=== PATIENT | female | born 1975 | race Hispanic/Latino ===

== ENCOUNTER 2018-07-11 20:04 | Observation (INO) | payer OTHER ==
[2018-07-11 20:43] LABS: #Basophils 0.1 thou/uL (0.0-0.2); #Eosinphils 0.3 thou/uL (0.0-0.7); #Lymphocytes 4.1 thou/uL (1.20-3.40); #Monocytes 0.8 thou/uL (0.11-0.59); #Neutrophils 6.7 thou/uL (1.40-6.50); %Basophils 0.6 % (0.0-1.0); %Eosinophils 2.3 % (0.0-10.0); %Lymphocytes 33.9 % (21.0-51.0); %Neutrophils 56.2 % (42.0-75.0); Hemoglobin 12.5 g/dL (12.0-16.0); Mean Corpuscular HGB CONC 33.1 g/dL (32.0-36.0); Mean Corpuscular Hemoglobin 30.1 pg (27.0-31.0); Mean Corpuscular Volume 90.9 fL (78.0-98.0); Mean Platelet Volume 8.7 fL (7.4-10.4); Platelet Count 316 thou/uL (130-400); RBC Distribution Width 14.3 % (11.5-14.5); Red Blood Cell (RBC) Count 4.15 mill/uL (4.20-5.40); White Blood Cell (WBC) Count 11.9 thou/uL (4.8-10.8)
[2018-07-11 21:04] LABS: ALT (SGPT) 8 U/L (8-55); AST (SGOT) 20 U/L (5-34); Albumin 3.8 g/dL (3.5-5.0); Alkaline Phosphatase 87 U/L (40-150); Anion Gap 14 mmol/L (10-20); BUN (Urea Nitrogen) 15 mg/dL (7.0-18.7); Bilirubin, Total 0.2 mg/dL (0.2-1.2); Calc. Creatinine Clearance 0 mL/min (70-130); Calcium 9.7 mg/dL (7.8-10.44); Carbon Dioxide 27 mmol/L (22-29); Chloride 100 mmol/L (98-107); Estimated GFR-MDRD Greater than 90; Globulin 3.8 g/dL (2.4-3.5); Glucose 115 mg/dL (70-105); Potassium 4.2 mmol/L (3.5-5.1); Protein, Total 7.6 g/dL (6.0-8.3); Sodium 137 mmol/L (136-145)
--- NOTE | 2018-07-11 21:24 | RAD ---
PORTABLE CHEST: 07/11/18 HISTORY: COPD and cough. This film is very suboptimal which appears largely to be related to body habitus. The heart size with in normal limits. Increased density over the right lung is probably on the basis of overlying soft ti ssue. Repeat PA chest film would be recommended for assessment. IMPRESSION: Suboptimal film. Increased density over the right lung is probably on the basis of overlying soft tis malu but a PA chest film would be helpful in better assessment. POS: [facility]
--- NOTE | 2018-07-11 21:53 | ULT ---
BILATERAL LOWER EXTREMITY VENOUS DUPLEX EXAM: 07/11/18 HISTORY: Bilateral lower extremity pain. The exam is technically difficult due to body habitus. Real time color doppler evaluation of the right and left lower extremities were performed including e valuation of the common femoral, superficial and profunda femoral, saphenous, popliteal, and posterio r tibial veins. There are patent deep venous systems bilaterally with normal compressibility and augmentation. IMPRESSION: No evidence of DVT of either lower extremity. POS: [facility]
--- NOTE | 2018-07-11 22:24 | RAD ---
CHEST TWO VIEWS: 07/11/18 COMPARISON: 04/11/14 study. HISTORY: Cough. Heart size is within normal limits. Lungs are clear of any infiltrative process. No significant bony findings. IMPRESSION: No active intrathoracic disease. POS: [facility]
[2018-07-11] MEDS ORDERED: hydrALAZINE 20 MG/ML VIAL ONE (22:41)
[2018-07-11] MEDS ORDERED: HYDROcodone/Acetaminophen 10/325 mg Tablet ONE (22:45)
[2018-07-11 23:34] LABS: Actual Bicarbonate (HCO3a) 25.6 mEq/L (22-28); Analyzer IN Cardio ER; Base Excess (BEa) 0.8 mEq/L (-2.0 to +3.0); CO2 Tension 41.4 mmHg (35.0-45.0); Calcium, Ionized 1.17 mmol/L (1.12-1.30); Carboxyhemoglobin (COHb) 0.1 gm% (0.0-3.0); Hemoglobin (Hb) 12.3 g/dL (12.0-16.0); O2 Tension (PaO2) 75.9 mmHg (80.0-100.0); Potassium - ABG Lab 3.84 mmol/L (3.70-5.30); pH, Arterial 7.41 (7.35-7.45)
[2018-07-12 01:29] LABS: Bilirubin Negative (Negative); Blood, Urine Negative (Negative); Clarity TURBID (Clear); Glucose, Urine (Dipstick) Negative (Negative); Leukocyte Moderate (Negative); Nitrite Negative (Negative); Protein, Urine (Dipstick) Trace mg/dL (Neg-Trace); Specific Gravity, Urine 1.027 (1.002-1.036); Urobilinogen 0.2 mg/dL (0.2-1.0)
[2018-07-12 01:31] LABS: Bacteria/HPF Rare-Few HPF (None Seen)
[2018-07-12 01:35] LABS: Hyaline Casts/LPF >50 HYALINE CAST LPF (0-3 Hyaline); Pathc Cast-AUWi Flag 27.91 (0-2.49)
[2018-07-12 02:07] LABS: Crystals/HPF 2+ STARCH HPF (Negative)
[2018-07-12 05:26] VITALS: BMI 76.3
[2018-07-12] MEDS ORDERED: Ondansetron PF 4 MG/2 ML Vial IVP PRN (05:47)
[2018-07-12] MEDS ORDERED: Ondansetron ODT 4 MG TAB SL PRN (05:47)
[2018-07-12] MEDS ORDERED: HYDROcodone/Acetaminophen 5/325 mg Tablet PO PRN ×2 (05:47)
[2018-07-12] MEDS ORDERED: Acetaminophen 325 MG TAB PO PRN (06:17)
[2018-07-12] MEDS ORDERED: cloNIDine 0.1 MG TAB PO PRN (06:20)
[2018-07-12] MEDS ORDERED: Lorazepam 1 MG TAB PO PRN (06:20)
[2018-07-12] MEDS ORDERED: RIZATRIPTAN BENZOATE 5 MG PO PRN (06:20)
[2018-07-12] MEDS ORDERED: PROVENTIL INHALER 6.7 G (200 INHALATIONS) INH PRN (06:20)
[2018-07-12] MEDS ORDERED: Rizatriptan Benzoate 10 MG MLT TAB PO PRN (06:34)
[2018-07-12] MEDS ORDERED: cefTRIAXone\\ROCEPHIN 1 GM in Sodium Chloride 0.9% 100 ML IVPB SCH (07:00)
[2018-07-12] MEDS: HYDROcodone/Acetaminophen 10/325 mg Tablet PO PRN ×4 (07:23→21:47)
--- NOTE | 2018-07-12 07:37 | HP ---
PRIMARY CARE DOCTOR: Dr. Bruce Armstrong CODE STATUS: Full code. TIME OF EVALUATION: 5:30 a.m. CHIEF COMPLAINT: Shortness of breath and tachycardia. HISTORY OF PRESENT ILLNESS: This is a 42 years old female patient, who is morbidly obese, also has a history of OA, RA, SLE, COPD, asthma. The patient came to the hospital having cough for a week, now associated with tachycardia with greenish sputum and shortness of breath that is worse with exertion and also when she falls asleep in the flat position. She also reported associated fever of 101.4 with chills. She reported she has finished [facility] as outpatient. Symptoms are moderate. REVIEW OF SYSTEMS: CONSTITUTIONAL: The patient has fever, chills, generalized weakness. RESPIRATORY: Cough, sputum production that is green, shortness of breath. CARDIOVASCULAR: No chest pain or palpitations. GASTROINTESTINAL: No nausea, no vomiting, diarrhea, or abdominal pain. GRADUATE FELLOW: No dizziness, headache, or feeling lightheaded. GENITOURINARY: No burning on urination. EXTREMITIES: Bilateral leg swelling. All other systems were reviewed and negative except for the findings mentioned above. PAST MEDICAL HISTORY: Positive for hypertension, fibromyalgia, lupus, migraines , chronic back pain, rheumatoid arthritis, asthma, pneumonia, and pleurisy. PAST SURGICAL HISTORY: The patient had right knee replacement, bilateral carpal tunnel surgery, sinus surgery x3, left knee replacement. PSYCHIATRIC HISTORY: Anxiety. SOCIAL HISTORY: The patient denies alcohol, drugs, or smoking history. Lives at home. FAMILY HISTORY: Reviewed and noncontributory for current presentation. ALLERGIES: TO MONTELUKAST, SINGULAIR, TRAMADOL. REPORTED MEDICATIONS: 1. Fluoxetine. 2. Lyrica. 3. Nexium. 4. Banner. 5. Potassium chloride. 6. Lorazepam. 7. Dilacor XR. 8. Savella. 9. Methimazole. 10. Aspirin. 11. Meloxicam. 12. Furosemide. 13. Losartan. 14. Clonidine. PHYSICAL EXAMINATION: VITAL SIGNS: On presentation, blood pressure 182/133 with heart rate 111, respiratory rate was 19, temperature 98.7. Pain was 7/10. Oxygen saturation was 98% on room air. GENERAL APPEARANCE: The patient is alert and oriented. HEENT: Eyes, normal conjunctiva. Moist oral mucosa. Anicteric. No JVD. RESPIRATORY: Bilateral air entry. No rales. No wheezes. Symmetric expansion. CARDIOVASCULAR: The patient is tachycardic. Regular rhythm. No murmurs. No gallop. Bilateral leg edema. ABDOMEN: The patient is morbidly obese. Normal bowel sounds. MUSCULOSKELETAL: Baseline range of motion and strength. No tenderness. SKIN: Warm, intact. No pallor. No rash. No redness. Peripheral pulses are present. Capillary refill seems to be intact. NEURO: No evidence of any focal weakness. Baseline speech. Cranial nerves seems to be intact. PSYCH: The patient is in good mood. No anxiety. Optimal judgment. DIAGNOSTIC STUDIES: EKG was reviewed, sinus tachycardia at the rate of 113, NE 150, QRS 84, QT corrected 477. Chest x-ray, suboptimal film, increased density over the right lung is probably on the basis of overlying soft tissue, but PA chest film will be helpful for better assessment. Venogram; no evidence of DVT of either lower extremity. Chest x-ray; no evidence of any cardiothoracic disease. LABORATORY DATA: White count 11.9, hemoglobin 12.5, platelet count 360. D-dimer 0.43. Blood gas was done; pH 7.41, pCO2 of 41, pO2 of 75.9. Chemistry; sodium 137, potassium 4.2, chloride 100, carbon dioxide 27, anion gap 14, BUN 15, creatinine 0.67, GFR is greater than 90, glucose 115, lactic acid 1.7, calcium 9.7, total bilirubin 0.2, AST 20, ALT 8, alkaline phosphatase 87. Troponin I was negative. Beta natriuretic peptide was 74.7. Urine was done, and the patient has a white count greater than 50, too numerous too count. ASSESSMENT AND PLAN: The patient was placed in the hospital with following medical problems: 1. Sepsis. The patient has fever, tachycardia, source is urinary tract infection , also possible acute bronchitis. We will place the patient on antibiotics. Final cultures. Adjust treatment as per sensitivity. 2. Hyperthyroidism. The patient will be placed on home medications. We will check TSH. 3. Morbid obesity. The patient is advised to lose weight. 4. Uncontrolled hypertension. The patient presented with hypertensive urgency with blood pressure of 182/133, has been treated in ER. Blood pressure has improved. 5. Reportedly history of rheumatoid arthritis and systemic lupus erythematosus. We will reconcile home medications. We will adjust treatment as needed. 6. Possible acute bronchitis. The patient has some fever and some cough with greenish sputum production. The patient will be placed on antibiotics with some nebs. Questionable history of chronic obstructive pulmonary disease. 7. Deep venous thrombosis prophylaxis. Job ID: [id number] MTDD
[2018-07-12] MEDS ORDERED: Loratadine 10 MG TAB PO PRN (07:54)
[2018-07-12] MEDS ORDERED: Artificial Tears 18 DROP/0.9 ML EA EYE PRN (07:54)
[2018-07-12] MEDS ORDERED: Diabetic Tussin 200 MG/10 ML UDCUP PO PRN (07:54)
[2018-07-12] MEDS ORDERED: hydrALAZINE 20 MG/ML VIAL SLOW IVP PRN (07:54)
[2018-07-12] MEDS ORDERED: Loperamide HCl 2 MG CAP PO PRN (07:54)
[2018-07-12] MEDS ORDERED: Cepastat Lozenges 1 LOZ PO PRN (07:54)
[2018-07-12] MEDS ORDERED: Senokot S 8.6-50 MG TAB PO PRN (07:54)
[2018-07-12] MEDS ORDERED: Sodium Chloride 0.65% Nasal 44 ML BOT EA NARE PRN (07:54)
[2018-07-12] MEDS ORDERED: Eucerin (Mineral Oil/Petrolatum,White) 30 gm Jar TOP PRN (07:54)
[2018-07-12] MEDS ORDERED: Bisacodyl 10 MG SUPP PR PRN (07:54)
[2018-07-12] MEDS ORDERED: Non-Formulary Item 1 EACH (Esomeprazole Magnesium [Nexium] 40 MG) PO SCH (08:00)
[2018-07-12] MEDS: Meloxicam 15 MG TAB PO SCH (08:57)
[2018-07-12] MEDS: Enoxaparin Sodium 40 MG/0.4 ML SYRINGE SC SCH (08:57)
[2018-07-12] MEDS: Potassium Chloride 10 MEQ TAB PO SCH ×2 (08:58→21:47)
[2018-07-12] MEDS: Losartan 25 MG TAB PO SCH (08:58)
[2018-07-12] MEDS: FLUoxetine HCl 20 MG CAP PO SCH ×2 (08:58→21:46)
[2018-07-12] MEDS: Aspirin 81 mg Enteric Coated Tablet PO SCH (08:58)
[2018-07-12] MEDS: guaiFENesin ER 600 MG TAB PO SCH ×2 (08:59→21:46)
[2018-07-12] MEDS: Furosemide 20 MG TAB PO SCH (08:59)
[2018-07-12] MEDS: Pregabalin 75 MG CAP PO SCH ×3 (08:59→21:45)
[2018-07-12] MEDS ORDERED: Non-Formulary Item 1 EACH (Pregabalin [Lyrica] 150 MG) PO SCH (09:00)
[2018-07-12] MEDS: cloNIDine 0.1 MG TAB PO SCH ×4 (09:00→21:44)
[2018-07-12] MEDS ORDERED: Non-Formulary Item 1 EACH (Losartan Potassium [Losartan Potassium] 100 MG) PO SCH (09:00)
[2018-07-12] MEDS ORDERED: MILNACIPRAN HCL 150 MG PO SCH ×2 (09:00)
[2018-07-12] MEDS ORDERED: Non-Formulary Item 1 EACH (Potassium Chloride [Potassium Chloride] 10 MEQ) PO SCH (09:00)
[2018-07-12] MEDS ORDERED: DILTIAZEM HCL 180 MG PO SCH (09:00)
[2018-07-12] MEDS: Methimazole 5 MG TAB PO SCH ×3 (09:59→21:47)
--- NOTE | 2018-07-12 11:31 | PDOC.PN ---
- Subjective Encounter Start Date: 07/12/18 Encounter Start Time: 07:30 -: old records requested/rev pt has cough, no fever, has dyspnea Patient seen and examined. No overnight events - Objective Resuscitation Status - Order Detail: 07/12/18 06:17 Resuscitation Status Routine Resuscitation Status: FULL: Full Resuscitation MAR Reviewed: Yes Vital Signs & Weight: Vital Signs (12 hours) Temp Pulse Resp BP Pulse Ox 07/12/18 08:14 97.8 F 103 H 20 155/74 H 93 L 07/12/18 05:20 98.3 F 111 H 20 176/115 H 94 L Weight Weight 431 lb I&O: 07/11/18 07/12/18 07/13/18 06:59 06:59 06:59 Intake Total 100 Balance 100 Result Diagrams: 07/11/18 20:33 07/11/18 20:33 Additional Labs: Accuchecks 07/12/18 07/12/18 10:46 05:45 POC Glucose 110 119 H Radiology Reviewed by me: Yes (chest xray reviwed) EKG Reviewed by me: Yes (nsr) Phys Exam - Physical Examination Constitutional: NAD HEENT: PERRLA, moist MMs, sclera anicteric Neck: no JVD, supple short neck Respiratory: no wheezing, no rales, no rhonchi limited exam due to obesity Cardiovascular: RRR, no significant murmur, no rub limited exam, distant sound Gastrointestinal: soft, non-tender, no distention, positive bowel sounds morbid obesity+ Musculoskeletal: no edema, pulses present Neurological: non-focal, normal sensation Lymphatic: no nodes Psychiatric: normal affect, A&O x 3 Skin: no rash, normal turgor Dx/Plan (1) Acute bronchitis Code(s): J20.9 - ACUTE BRONCHITIS, UNSPECIFIED Status: Acute (2) UTI (urinary tract infection) Status: Acute (3) Anxiety and depression Code(s): F41.9 - ANXIETY DISORDER, UNSPECIFIED; F32.9 - MAJOR DEPRESSIVE DISORDER, SINGLE EPISODE, UNSPECIFIED Status: Chronic (4) Asthma with COPD Code(s): J44.9 - CHRONIC OBSTRUCTIVE PULMONARY DISEASE, UNSPECIFIED Status: Chronic (5) Chronic pain syndrome Code(s): G89.4 - CHRONIC PAIN SYNDROME Status: Chronic (6) GERD (gastroesophageal reflux disease) Code(s): K21.9 - GASTRO-ESOPHAGEAL REFLUX DISEASE WITHOUT ESOPHAGITIS Status: Chronic (7) Hypertension Code(s): I10 - ESSENTIAL (PRIMARY) HYPERTENSION Status: Chronic (8) Hyperthyroidism Code(s): E05.90 - THYROTOXICOSIS, UNSP WITHOUT THYROTOXIC CRISIS OR STORM Status: Chronic (9) Migraine Code(s): G43.909 - MIGRAINE, UNSP, NOT INTRACTABLE, WITHOUT STATUS MIGRAINOSUS Status: Chronic (10) Morbid obesity with BMI of 70 and over, adult Code(s): E66.01 - MORBID (SEVERE) OBESITY DUE TO EXCESS CALORIES; Z68.45 - BODY MASS INDEX (BMI) 70 OR GREATER, ADULT Status: Chronic (11) Obstructive sleep apnea Code(s): G47.33 - OBSTRUCTIVE SLEEP APNEA (ADULT) (PEDIATRIC) Status: Chronic (12) Osteoarthritis Code(s): M19.90 - UNSPECIFIED OSTEOARTHRITIS, UNSPECIFIED SITE Status: Chronic - Plan cont current plan of care, plan discussed w/ family, continue antibiotics, respiratory therapy * continue rocephin * continue respiratory therapy * add mucinex * follow on urine culture result * expecting discharge tomorrow * medication reviewed as below * symptomatic treatment. Review of Systems - Review of Systems Constitutional: negative: fever, chills, sweats, weakness, malaise, other Eyes: negative: Pain, Vision Change, Conjunctivae Inflammation, Eyelid Inflammation, Redness, Other ENT: negative: Ear Pain, Ear Discharge, Nose Pain, Nose Discharge, Nose Congestion, Mouth Pain, Mouth Swelling, Throat Pain, Throat Swelling, Other Respiratory: Cough. negative: Dry, Shortness of Breath, Hemoptysis, SOB with Excertion, Pleuritic Pain, Sputum, Wheezing Cardiovascular: negative: chest pain, palpitations, orthopnea, paroxysmal nocturnal dyspnea, edema, light headedness, other Gastrointestinal: negative: Nausea, Vomiting, Abdominal Pain, Diarrhea, Constipation, Melena, Hematochezia, Other Genitourinary: negative: Dysuria, Frequency, Incontinence, Hematuria, Retention , Other Musculoskeletal: negative: Neck Pain, Shoulder Pain, Arm Pain, Back Pain, Hand Pain, Leg Pain, Foot Pain, Other Skin: negative: Rash, Lesions, Sandeep, Bruising, Other - Medications/Allergies Allergies/Adverse Reactions: Allergies Allergy/AdvReac Type Severity Reaction Status Date / Time montelukast sodium Allergy Verified 11/30/13 01:41 [From [facility]] tramadol Allergy Verified 01/09/15 02:17 Medications: Current Medications Acetaminophen (Tylenol) 650 mg PO Q4H PRN PRN Reason: Headache/Fever/Mild Pain (1-3) Hydrocodone Bitart/Acetaminophen ([place] 10/325) 2 tab PO Q4H PRN PRN Reason: Pain Last Admin: 07/12/18 07:23 Dose: 2 tab Albuterol Sulfate (Proventil Hfa) 2 puff INH Q4H PRN PRN Reason: Dyspnea/Wheezing/SOB Albuterol/Ipratropium (Duoneb) 3 ml NEB Q6H PRN PRN Reason: .SOB Stop: 07/15/18 11:20 Artificial Tears (Tears Naturale) 2 drop EA EYE PRN PRN PRN Reason: Dry Eyes Aspirin (Ecotrin) 81 mg PO DAILY [facility] Last Admin: 07/12/18 08:58 Dose: 81 mg Bisacodyl (Dulcolax) 10 mg AR DAILYPRN PRN PRN Reason: Constipation Clonidine (Catapres) 0.1 mg PO Q4HR [facility] Stop: 07/16/18 11:20 Last Admin: 07/12/18 09:00 Dose: 0.1 mg Clonidine (Catapres) 0.1 mg PO BID PRN PRN Reason: Hypertension Diltiazem HCl (Cardizem Cd) 180 mg PO DAILY [facility] Last Admin: 07/12/18 08:59 Dose: 180 mg Enoxaparin Sodium (Lovenox) 40 mg SC 0900 [facility] Last Admin: 07/12/18 08:57 Dose: 40 mg Fluoxetine HCl (Prozac) 20 mg PO BID [facility] Last Admin: 07/12/18 08:58 Dose: 20 mg Furosemide (Lasix) 20 mg PO DAILY [facility] Last Admin: 07/12/18 08:59 Dose: 20 mg Guaifenesin (Robitussin Sf) 200 mg PO Q4H PRN PRN Reason: Cough Guaifenesin (Mucinex) 1,200 mg PO Q12HR [facility] Last Admin: 07/12/18 08:59 Dose: 1,200 mg Hydralazine HCl (Apresoline) 10 mg SLOW IVP Q4H PRN PRN Reason: SBP > 180 and HR < 70 Ceftriaxone Sodium 1 gm/ (Sodium Chloride) 100 mls @ 200 mls/hr IVPB Q24HR [facility] Last Admin: 07/12/18 07:23 Dose: 100 mls Loperamide HCl (Imodium) 2 mg PO PRN PRN PRN Reason: Diarrhea/Loose Stools Loratadine (Claritin) 10 mg PO DAILYPRN PRN PRN Reason: Sinus Symptoms Lorazepam (Ativan) 1 mg PO Q6H PRN PRN Reason: Anxiety Losartan Potassium (Cozaar) 100 mg PO DAILY [facility] Last Admin: 07/12/18 08:58 Dose: 100 mg Meloxicam (Mobic) 15 mg PO DAILY [facility] Last Admin: 07/12/18 08:57 Dose: 15 mg Methimazole () 5 mg PO TID [facility] Last Admin: 07/12/18 09:59 Dose: 5 mg Mineral Oil/White Petrolatum (Eucerin Cream) 0 gm TOP BIDPRN PRN PRN Reason: Dry Skin Ondansetron HCl (Zofran) 4 mg IVP Q6H PRN PRN Reason: Nausea/Vomiting Stop: 07/16/18 11:20 Pantoprazole Sodium (Protonix) 40 mg PO QAM-WM [facility] Last Admin: 07/12/18 07:24 Dose: 40 mg (Milnacipran Hcl [ (Savella] 150 Mg) 0 each PO BID [facility] Potassium Chloride (Klor-Con 10) 10 meq PO BID [facility] Last Admin: 07/12/18 08:58 Dose: 10 meq Pregabalin (Lyrica) 150 mg PO TID [facility] Last Admin: 07/12/18 08:59 Dose: 150 mg Rizatriptan Benzoate (Maxalt-Leather Belt Loop Cutter) 5 mg PO Q2H PRN PRN Reason: Headache Senna/Docusate Sodium (Senokot S) 2 tab PO BID PRN PRN Reason: Constipation Sodium Chloride (Flush - Normal Saline) 10 ml IVF Q12HR [facility] Last Admin: 07/12/18 09:04 Dose: 10 ml Sodium Chloride (Flush - Normal Saline) 10 ml IVF PRN PRN PRN Reason: Saline Flush Sodium Chloride ([place] Nasal [place] 0.65%) 0 ml EA NARE QIDPRN PRN PRN Reason: Nasal Congestion Throat Lozenges (Cepastat Lozenges) 1 marquis PO Q2H PRN PRN Reason: Sore Throat
[2018-07-13] MEDS: cloNIDine 0.1 MG TAB PO SCH (01:15)
[2018-07-13] MEDS ORDERED: Lorazepam 2 MG/ML VIAL SLOW IVP SCH (02:45)
[2018-07-13] MEDS: HYDROcodone/Acetaminophen 10/325 mg Tablet PO PRN ×2 (04:10→09:26)
[2018-07-13 06:11] LABS: #Eosinphils 0.3 thou/uL (0.0-0.7); #Lymphocytes 3.7 thou/uL (1.20-3.40); #Monocytes 0.7 thou/uL (0.11-0.59); #Neutrophils 6.5 thou/uL (1.40-6.50); %Basophils 0.4 % (0.0-1.0); %Eosinophils 2.5 % (0.0-10.0); %Lymphocytes 32.7 % (21.0-51.0); %Monocytes 6.2 % (0.0-10.0); %Neutrophils 58.2 % (42.0-75.0); Hemoglobin 11.8 g/dL (12.0-16.0); Mean Corpuscular HGB CONC 33.7 g/dL (32.0-36.0); Mean Corpuscular Hemoglobin 30.3 pg (27.0-31.0); Mean Corpuscular Volume 89.9 fL (78.0-98.0); Platelet Count 289 thou/uL (130-400); RBC Distribution Width 14.2 % (11.5-14.5); White Blood Cell (WBC) Count 11.2 thou/uL (4.8-10.8)
[2018-07-13 06:32] LABS: Anion Gap 14 mmol/L (10-20); BUN (Urea Nitrogen) 13 mg/dL (7.0-18.7); Calc. Creatinine Clearance 360 mL/min (70-130); Calcium 9.3 mg/dL (7.8-10.44); Carbon Dioxide 24 mmol/L (22-29); Chloride 101 mmol/L (98-107); Estimated GFR-MDRD Greater than 90; Glucose 123 mg/dL (70-105); Potassium 4.2 mmol/L (3.5-5.1); Sodium 135 mmol/L (136-145)
[2018-07-13] MEDS ORDERED: cefTRIAXone\\ROCEPHIN 1 GM in Sodium Chloride 0.9% 100 ML IVPB SCH (08:00)
[2018-07-13 08:40] VITALS: TEMP 98.1
[2018-07-13] MEDS: Pregabalin 75 MG CAP PO SCH (08:41)
[2018-07-13] MEDS: Potassium Chloride 10 MEQ TAB PO SCH (08:42)
[2018-07-13] MEDS: Enoxaparin Sodium 40 MG/0.4 ML SYRINGE SC SCH (08:43)
[2018-07-13] MEDS: FLUoxetine HCl 20 MG CAP PO SCH (08:43)
[2018-07-13] MEDS: Aspirin 81 mg Enteric Coated Tablet PO SCH (08:43)
[2018-07-13] MEDS: Furosemide 20 MG TAB PO SCH (08:43)
[2018-07-13] MEDS: Meloxicam 15 MG TAB PO SCH (08:44)
[2018-07-13] MEDS: Losartan 25 MG TAB PO SCH (08:44)
[2018-07-13] MEDS: guaiFENesin ER 600 MG TAB PO SCH (08:44)
[2018-07-13] MEDS: Methimazole 5 MG TAB PO SCH (08:44)
--- NOTE | 2018-07-13 09:29 | PDOC.PN ---
- Subjective Encounter Start Date: 07/13/18 Encounter Start Time: 07:20 Patient seen and examined. No new complaints. No overnight events - Objective Resuscitation Status - Order Detail: 07/12/18 06:17 Resuscitation Status Routine Resuscitation Status: FULL: Full Resuscitation MAR Reviewed: Yes Vital Signs & Weight: Vital Signs (12 hours) Temp Pulse Resp BP BP BP Pulse Ox 07/13/18 08:40 98.1 F 97 17 177/105 H 96 07/13/18 05:45 95 20 130/60 07/13/18 04:55 20 95 07/13/18 04:52 20 95 07/13/18 04:13 187/105 H 07/13/18 03:40 97.7 F 97 20 178/100 H 95 07/13/18 01:15 191/96 H 07/13/18 01:12 20 95 07/12/18 23:15 97.9 F 96 20 123/64 95 07/12/18 21:44 191/96 H 07/12/18 21:30 20 94 L Weight Weight 429 lb 14.4 oz I&O: 07/12/18 07/13/18 07/14/18 06:59 06:59 06:59 Intake Total 1660 Balance 1660 Result Diagrams: 07/13/18 05:40 07/13/18 05:40 Additional Labs: Accuchecks 07/13/18 07/12/18 07/12/18 05:19 17:15 10:46 POC Glucose 123 H 138 H 110 EKG Reviewed by me: Yes Phys Exam - Physical Examination Constitutional: NAD HEENT: PERRLA, moist MMs, sclera anicteric, TM's clear Neck: no JVD, supple Respiratory: no wheezing, no rales, no rhonchi Cardiovascular: RRR, no significant murmur, no rub Gastrointestinal: soft, non-tender, no distention, positive bowel sounds Musculoskeletal: no edema, pulses present Neurological: non-focal, normal sensation, moves all 4 limbs Lymphatic: no nodes Psychiatric: normal affect, A&O x 3 Skin: no rash, normal turgor Dx/Plan (1) Acute bronchitis Code(s): J20.9 - ACUTE BRONCHITIS, UNSPECIFIED Status: Acute (2) UTI (urinary tract infection) Status: Acute (3) Anxiety and depression Code(s): F41.9 - ANXIETY DISORDER, UNSPECIFIED; F32.9 - MAJOR DEPRESSIVE DISORDER, SINGLE EPISODE, UNSPECIFIED Status: Chronic (4) Asthma with COPD Code(s): J44.9 - CHRONIC OBSTRUCTIVE PULMONARY DISEASE, UNSPECIFIED Status: Chronic (5) Chronic pain syndrome Code(s): G89.4 - CHRONIC PAIN SYNDROME Status: Chronic (6) GERD (gastroesophageal reflux disease) Code(s): K21.9 - GASTRO-ESOPHAGEAL REFLUX DISEASE WITHOUT ESOPHAGITIS Status: Chronic (7) Hypertension Code(s): I10 - ESSENTIAL (PRIMARY) HYPERTENSION Status: Chronic (8) Hyperthyroidism Code(s): E05.90 - THYROTOXICOSIS, UNSP WITHOUT THYROTOXIC CRISIS OR STORM Status: Chronic (9) Migraine Code(s): G43.909 - MIGRAINE, UNSP, NOT INTRACTABLE, WITHOUT STATUS MIGRAINOSUS Status: Chronic (10) Morbid obesity with BMI of 70 and over, adult Code(s): E66.01 - MORBID (SEVERE) OBESITY DUE TO EXCESS CALORIES; Z68.45 - BODY MASS INDEX (BMI) 70 OR GREATER, ADULT Status: Chronic (11) Obstructive sleep apnea Code(s): G47.33 - OBSTRUCTIVE SLEEP APNEA (ADULT) (PEDIATRIC) Status: Chronic (12) Osteoarthritis Code(s): M19.90 - UNSPECIFIED OSTEOARTHRITIS, UNSPECIFIED SITE Status: Chronic - Plan cont current plan of care, plan discussed w/ family * medication reviewed as below * symptomatic treatment * see discharge taisha. Review of Systems - Review of Systems ENT: negative: Ear Pain, Ear Discharge, Nose Pain, Nose Discharge, Nose Congestion, Mouth Pain, Mouth Swelling, Throat Pain, Throat Swelling, Other Respiratory: negative: Cough, Dry, Shortness of Breath, Hemoptysis, SOB with Excertion, Pleuritic Pain, Sputum, Wheezing Cardiovascular: negative: chest pain, palpitations, orthopnea, paroxysmal nocturnal dyspnea, edema, light headedness, other Gastrointestinal: negative: Nausea, Vomiting, Abdominal Pain, Diarrhea, Constipation, Melena, Hematochezia, Other Genitourinary: negative: Dysuria, Frequency, Incontinence, Hematuria, Retention , Other Musculoskeletal: negative: Neck Pain, Shoulder Pain, Arm Pain, Back Pain, Hand Pain, Leg Pain, Foot Pain, Other - Medications/Allergies Allergies/Adverse Reactions: Allergies Allergy/AdvReac Type Severity Reaction Status Date / Time montelukast sodium Allergy Verified 04/28/13 01:41 [From [facility]] tramadol Allergy Verified 01/09/15 02:17 Medications: Current Medications Acetaminophen (Tylenol) 650 mg PO Q4H PRN PRN Reason: Headache/Fever/Mild Pain (1-3) Hydrocodone Bitart/Acetaminophen ([place] 10/325) 2 tab PO Q4H PRN PRN Reason: Pain Last Admin: 07/13/18 09:26 Dose: 2 tab Albuterol Sulfate (Proventil Hfa) 2 puff INH Q4H PRN PRN Reason: Dyspnea/Wheezing/SOB Last Admin: 07/13/18 04:55 Dose: 2 puff Artificial Tears (Tears Naturale) 2 drop EA EYE PRN PRN PRN Reason: Dry Eyes Aspirin (Ecotrin) 81 mg PO DAILY [facility] Last Admin: 07/13/18 08:43 Dose: 81 mg Bisacodyl (Dulcolax) 10 mg OR DAILYPRN PRN PRN Reason: Constipation Clonidine (Catapres) 0.1 mg PO BID PRN PRN Reason: Hypertension Last Admin: 07/13/18 04:13 Dose: 0.1 mg Diltiazem HCl (Cardizem Cd) 180 mg PO DAILY [facility] Last Admin: 07/13/18 08:43 Dose: 180 mg Enoxaparin Sodium (Lovenox) 40 mg SC 0900 [facility] Last Admin: 07/13/18 08:43 Dose: 40 mg Fluoxetine HCl (Prozac) 20 mg PO BID [facility] Last Admin: 07/13/18 08:43 Dose: 20 mg Furosemide (Lasix) 20 mg PO DAILY [facility] Last Admin: 07/13/18 08:43 Dose: 20 mg Guaifenesin (Robitussin Sf) 200 mg PO Q4H PRN PRN Reason: Cough Guaifenesin (Mucinex) 1,200 mg PO Q12HR [facility] Last Admin: 07/13/18 08:44 Dose: 1,200 mg Hydralazine HCl (Apresoline) 10 mg SLOW IVP Q4H PRN PRN Reason: SBP > 180 and HR < 70 Ceftriaxone Sodium 1 gm/ (Sodium Chloride) 100 mls @ 200 mls/hr IVPB 0800 [facility] Last Admin: 07/13/18 08:40 Dose: 100 mls Loperamide HCl (Imodium) 2 mg PO PRN PRN PRN Reason: Diarrhea/Loose Stools Loratadine (Claritin) 10 mg PO DAILYPRN PRN PRN Reason: Sinus Symptoms Lorazepam (Ativan) 1 mg PO Q6H PRN PRN Reason: Anxiety Losartan Potassium (Cozaar) 100 mg PO DAILY [facility] Last Admin: 07/13/18 08:44 Dose: 100 mg Meloxicam (Mobic) 15 mg PO DAILY [facility] Last Admin: 07/13/18 08:44 Dose: 15 mg Methimazole () 5 mg PO TID [facility] Last Admin: 07/13/18 08:44 Dose: 5 mg Mineral Oil/White Petrolatum (Eucerin Cream) 0 gm TOP BIDPRN PRN PRN Reason: Dry Skin Pantoprazole Sodium (Protonix) 40 mg PO QAM-WM [facility] Last Admin: 07/13/18 08:43 Dose: 40 mg (Milnacipran Hcl [ (Savella] 150 Mg) 0 each PO BID [facility] Potassium Chloride (Klor-Con 10) 10 meq PO BID [facility] Last Admin: 07/13/18 08:42 Dose: 10 meq Pregabalin (Lyrica) 150 mg PO TID [facility] Last Admin: 07/13/18 08:41 Dose: 150 mg Rizatriptan Benzoate (Maxalt-It Investment/Portfolio Manager) 5 mg PO Q2H PRN PRN Reason: Headache Senna/Docusate Sodium (Senokot S) 2 tab PO BID PRN PRN Reason: Constipation Sodium Chloride (Flush - Normal Saline) 10 ml IVF Q12HR [facility] Last Admin: 07/13/18 08:41 Dose: 10 ml Sodium Chloride (Flush - Normal Saline) 10 ml IVF PRN PRN PRN Reason: Saline Flush Sodium Chloride ([place] Nasal [place] 0.65%) 0 ml EA NARE QIDPRN PRN PRN Reason: Nasal Congestion Throat Lozenges (Cepastat Lozenges) 1 marquis PO Q2H PRN PRN Reason: Sore Throat
--- NOTE | 2018-07-13 09:48 | DIS ---
DATE OF ADMISSION: 07/11/2018 DATE OF DISCHARGE: 07/13/2018 PRIMARY CARE PHYSICIAN: Dr. Bruce Armstrong. DISCHARGE DISPOSITION: Home. PRIMARY DISCHARGE DIAGNOSES: Acute bronchitis, urinary tract infection. SECONDARY DISCHARGE DIAGNOSES: Morbid obesity with BMI 76, obstructive sleep apnea, osteoarthritis, migraine headaches, hyperthyroidism, hypertension, gastroesophageal reflux disease, chronic pain disorder, asthma with chronic obstructive pulmonary disease, anxiety and depression. PRIMARY PROCEDURES/OPERATION: None. RADIOLOGICAL INVESTIGATION: Chest x-ray normal. Ultrasound, lower extremity, negative for DVT. SIGNIFICANT LABORATORY DATA: WBC 11.2, hemoglobin 11.8, platelets 289. D-dimer 0.43. Sodium 135, potassium 4.2, BUN 13, creatinine 0.62, calcium 9.3. TSH 1.45. LFT normal. Cardiac enzyme negative. BNP 24.7. Lactic acid 1.7. Urinalysis suggestive of UTI. Urine culture negative. Blood culture negative. Influenza screen negative. DISCHARGE MEDICATIONS: 1. Rizatriptan 5 mg p.o. q.2 hourly p.r.n. as directed. 2. Isle 10 two tablets q.4 hourly p.r.n. 3. Ventolin inhaler two puffs q.4 hourly p.r.n. 4. Aspirin 81 mg daily. 5. Clonidine 0.1 mg p.o. b.i.d. p.r.n. 6. Cardizem CD 180 mg daily. 7. Nexium 40 mg daily. 8. Prozac 20 mg p.o. b.i.d. 9. Lasix 20 mg daily. 10. Lorazepam 1 mg p.o. q.6 hourly p.r.n. 11. Losartan 100 mg p.o. daily. 12. Mobic 15 mg p.o. daily p.r.n. 13. Methimazole 5 mg p.o. t.i.d. 14. Savella 150 mg p.o. b.i.d. 15. Potassium chloride 10 mEq p.o. b.i.d. 16. Lyrica 150 mg p.o. t.i.d. 17. Mucinex 600 mg p.o. q.i.d. 18. DuoNeb q.6 hourly. 19. Levaquin 750 mg p.o. daily for 7 days. 20. Dulera two puffs inhalation b.i.d. 21. Prednisone 20 mg p.o. b.i.d. for 7 days. CONTRAINDICATION: None. CODE STATUS: Full code. INPATIENT CONSULT: None. ALLERGIES: SINGULAIR, TRAMADOL. DISCHARGE PLAN: Posthospital, the patient will follow up with primary care physician in one week. HOSPITAL COURSE: A 42-year-old female who was admitted by Dr. Herrera. Please see his H and P for further details. The patient was admitted for cough and shortness of breath. She was initially tachycardic and tachypneic. Her D-dimer was negative. Her chest x-ray was unremarkable. Ultrasound of lower extremity was negative for DVT. Her BNP was normal and cardiac enzyme is negative. The patient was diagnosed with acute bronchitis. She was treated with respiratory therapy, empiric antibiotic therapy. Her urinalysis was also consistent with UTI. Her influenza screen, blood culture, and urine culture negative by the time of discharge. Next day, the patient was on room air. She did not have any wheezing. She was feeling much better. On discharge, we prescribed seven days of prednisone as well as seven days' worth antibiotic therapy. DuoNeb, she ran out, which was also prescribed. Rest of medication will be continued as per previous. The patient will follow up with primary care physician. The patient is seen and examined at bedside today. REVIEW OF SYSTEMS: Reviewed with her and negative. PHYSICAL EXAMINATION: VITAL SIGNS: Currently, temperature 98.1, pulse 95, respiratory rate 20, blood pressure 130/60, saturation 95% on room air. Weight 429 pounds. GENERAL: The patient is currently alert and awake. No obvious acute distress. HEENT: Head; normocephalic and atraumatic. LUNGS: Clear to auscultation without any rhonchi or rales. CARDIAC: S1 and S2 regular. Distant heart sound. No murmur. ABDOMEN: Morbid obesity. Limiting examination. EXTREMITIES: No edema. NEUROLOGIC: Nonfocal examination. All prescription sent to her pharmacy. The patient is medically stable for discharge today. Job ID: [id number]
[2018-07-13 10:47] VITALS: BP 148/84
== END 2018-07-13 11:09 | disposition home or self-care (01) ==
LOC: ERS 20:04 → ERHOLD 23:37 → 2NO 07-12 05:26
PROVIDERS: ADMIT Hospitalist; ATTEND Hospitalist
DX: J20.9 Acute bronchitis, unspecified (principal); N39.0 Urinary tract infection, site not specified; E66.01 Morbid (severe) obesity due to excess calories; Z68.45 Body mass index [BMI] 70 or greater, adult; I10 Essential (primary) hypertension; K21.9 Gastro-esophageal reflux disease without esophagitis; G89.4 Chronic pain syndrome; J44.9 Chronic obstructive pulmonary disease, unspecified; F32.9 Major depressive disorder, single episode, unspecified; F41.9 Anxiety disorder, unspecified; M19.90 Unspecified osteoarthritis, unspecified site; M06.9 Rheumatoid arthritis, unspecified; M32.9 Systemic lupus erythematosus, unspecified; M79.7 Fibromyalgia; G43.909 Migraine, unspecified, not intractable, without status migrainosus; E05.90 Thyrotoxicosis, unspecified without thyrotoxic crisis or storm; G47.33 Obstructive sleep apnea (adult) (pediatric); Z87.01 Personal history of pneumonia (recurrent); Z96.653 Presence of artificial knee joint, bilateral; Z88.8 Allergy status to other drugs, medicaments and biological substances; Z88.5 Allergy status to narcotic agent; Z79.82 Long term (current) use of aspirin; Z79.2 Long term (current) use of antibiotics; Z79.52 Long term (current) use of systemic steroids; Z79.1 Long term (current) use of non-steroidal anti-inflammatories (NSAID); Z79.899 Other long term (current) drug therapy; Z98.890 Other specified postprocedural states
CPT/HCPCS: 36415; 36416; 71045; 71046; 80048; 80053; 81003; 81015; 82805; 83605; 83880; 84443; 84484; 85025; 85379; 87040; 87086; 87804; 90471; 90686; 93005; 93970; 94640; 94660; 94664; 96365; 96366; 96372; 96374; 96375; G0008; G0378; J0360; J0696; J1650; J7050; J7620

== ENCOUNTER 2020-05-21 20:21 | Emergency (ER) | payer OTHER ==
--- NOTE | 2020-05-21 22:00 | RAD ---
EXAM: Single view of the chest HISTORY: Coughing up blood COMPARISON: 07/11/2018 FINDINGS: This exam is limited secondary to patient's large body habitus. Single view of the chest sh ows an enlarged cardiomediastinal silhouette. This may be accentuated by low lung volumes. Bilateral pulmonary vascular prominence is seen. There may be subtle airspace opacities in both lower lobes. No acute osseous abnormality. IMPRESSION: Possible bilateral lower lobe infiltrates. Evaluation is limited as above.
[2020-05-21 22:08] LABS: Hemoglobin 12.7 g/dL (12.0-16.0); Mean Corpuscular Hemoglobin 31.5 pg (27.0-31.0); Mean Corpuscular Volume 92.6 fL (78.0-98.0); Mean Platelet Volume 8.8 fL (7.4-10.4); Platelet Count 329 thou/uL (130-400); RBC Distribution Width 13.9 % (11.5-14.5); Red Blood Cell (RBC) Count 4.03 mill/uL (4.20-5.40); White Blood Cell (WBC) Count 17.5 thou/uL (4.8-10.8)
[2020-05-21] MEDS ORDERED: methylPREDNISolone Sod Succ/PF 125 MG/2 ML VIAL ONE (22:19)
[2020-05-21 22:24] LABS: ALT (SGPT) 12 U/L (8-55); AST (SGOT) 26 U/L (5-34); Alkaline Phosphatase 97 U/L (40-110); Anion Gap 18 mmol/L (10-20); BUN (Urea Nitrogen) 14 mg/dL (7.0-18.7); Bilirubin, Total 0.3 mg/dL (0.2-1.2); Calc. Creatinine Clearance 0 mL/min (70-130); Calcium 9.5 mg/dL (7.8-10.44); Carbon Dioxide 27 mmol/L (22-29); Chloride 98 mmol/L (98-107); Globulin 4.3 g/dL (2.4-3.5); Glucose 117 mg/dL (70-105); Potassium 4.2 mmol/L (3.5-5.1); Protein, Total 8.3 g/dL (6.0-8.3); Sodium 139 mmol/L (136-145)
[2020-05-21] MEDS ORDERED: Ketorolac Tromethamine 30 MG/ML VIAL ONE (22:25)
[2020-05-21] MEDS ORDERED: Dexamethasone 4 mg/ml Vial ONE (22:27)
[2020-05-21 22:40] LABS: Band 10 % (5-11); Eosinophils 1 % (0-10); Lymphocytes 24 % (21-51); MDiff Complete? YES; Monocytes 5 % (0-10); Neutrophil 60 % (42-75)
[2020-05-21] MEDS ORDERED: cefTRIAXone\\ROCEPHIN 2 GM VIAL ONE (23:05)
[2020-05-22] MEDS ORDERED: Azithromycin 500 MG VIAL ONE (00:52)
[2020-05-22 06:04] LABS: SARS-CoV-2 MS2 Positive; SARS-CoV-2 N Gene Negative; SARS-CoV-2 S Gene Negative; SARS-CoV-2 by NAA Not Detected (NotDetected); SARS-CoV-2 orf1ab Negative
== END 2020-05-22 01:55 | disposition home or self-care (01) ==
LOC: ERS 20:21
DX: U07.1 COVID-19 (principal); J12.89 Other viral pneumonia; R04.0 Epistaxis; J44.9 Chronic obstructive pulmonary disease, unspecified; I10 Essential (primary) hypertension; M19.90 Unspecified osteoarthritis, unspecified site; M06.9 Rheumatoid arthritis, unspecified; Z79.82 Long term (current) use of aspirin; Z79.899 Other long term (current) drug therapy
CPT/HCPCS: 36415; 71045; 80053; 83605; 83880; 84484; 85025; 85379; 87040; 87635; 93005; 96365; 96367; 96375; J0456; J0696; J1100; J1885; J2930; U0003